=== PATIENT | female | born 1960 | race Hispanic/Latino ===

== ENCOUNTER 2022-05-23 07:48 | Observation (INO) | payer OTHER, MEDICARE ==
[2022-05-23 08:24] LABS: #Basophils 0.1 thou/uL (0.0-0.2); #Lymphocytes 3.2 thou/uL (1.20-3.40); #Monocytes 0.5 thou/uL (0.11-0.59); #Neutrophils 5.3 thou/uL (1.40-6.50); %Basophils 0.7 % (0.0-1.0); %Eosinophils 0.4 % (0.0-10.0); %Lymphocytes 34.8 % (21.0-51.0); %Monocytes 5.7 % (0.0-10.0); %Neutrophils 58.3 % (42.0-75.0); Hemoglobin 12.6 g/dL (12.0-16.0); Mean Corpuscular HGB CONC 31.8 g/dL (32.0-36.0); Mean Corpuscular Hemoglobin 32.5 pg (27.0-31.0); Mean Platelet Volume 8.6 fL (7.4-10.4); Platelet Count 205 10x3/uL (130-400); Red Blood Cell (RBC) Count 3.87 mill/uL (4.20-5.40); White Blood Cell (WBC) Count 9.1 10x3/uL (4.8-10.8)
[2022-05-23 08:47] LABS: Acetaminophen Less than 10.0 mcg/mL (10.0-30.0); Alcohol Less than 10 mg/dL (Less than 10); Salicylate Less than 8.0 mg/dL (15.0-30.0)
[2022-05-23 08:48] LABS: ALT (SGPT) 26 U/L (8-55); AST (SGOT) 25 U/L (5-34); Alkaline Phosphatase 64 U/L (40-110); Anion Gap 16 mmol/L (10-20); BUN (Urea Nitrogen) 15 mg/dL (9.8-20.1); Bilirubin, Total 0.8 mg/dL (0.2-1.2); Calc. Creatinine Clearance 0 mL/min (70-130); Calcium 9.1 mg/dL (7.8-10.44); Carbon Dioxide 17 mmol/L (22-29); Chloride 105 mmol/L (98-107); Estimated GFR 82; Globulin 3.2 g/dL (2.4-3.5); Glucose 146 mg/dL (70-105); Lipase 9 U/L (8-78); Potassium 3.5 mmol/L (3.5-5.1); Protein, Total 7.2 g/dL (6.0-8.3); Sodium 134 mmol/L (136-145)
[2022-05-23] MEDS ORDERED: Morphine 4 MG/ML VIAL ONE (08:52)
[2022-05-23] MEDS ORDERED: Gentamicin Sulfate 80 MG in Premix Bag 1 BAG IVPB SCH (09:45)
[2022-05-23] MEDS ORDERED: CEFAZOLIN 1 GM VIAL ONE (09:49)
[2022-05-23 10:41] LABS: SARS-CoV-2 NAA Rapid Test Not Detected (NotDetected)
[2022-05-23] MEDS ORDERED: Sodium Chloride 0.9% 1,000 ML IV SCH (12:30)
[2022-05-23 12:31] VITALS: BMI 38.4
[2022-05-23 14:17] LABS: Bilirubin Negative (Negative); Blood, Urine Negative (Negative); Clarity Clear (Clear); Glucose, Urine (Dipstick) Normal (Negative); Ketone, Urine 40 mg/dL (Negative); Leukocyte Negative Leu/uL (Negative); Nitrite Negative (Negative); Protein, Urine (Dipstick) 20 mg/dL (Neg-Trace); Urobilinogen Normal mg/dL (Less than 2)
[2022-05-23 14:18] LABS: Specific Gravity, Urine 1.063 (1.002-1.036)
[2022-05-23 14:26] LABS: Amphetamine Not Detected (NotDetected); Barbiturates Screen Not Detected (NotDetected); Benzodiazepine Screen Detected (NotDetected); Cocaine Metabolite Screen Not Detected (NotDetected); Methadone Not Detected (NotDetected); Methamphetamine Not Detected (NotDetected); Opiate Screen Detected (NotDetected); Oxycodone Screen Not Detected (NotDetected); Phencyclidine (PCP) Not Detected (NotDetected); THC/Cannabinoid Screen Detected (NotDetected); Tricyclic Screen Not Detected (NotDetected)
[2022-05-23] MEDS ORDERED: Iopamidol-370 76% 500 ML 1 ML ONE (15:25)
[2022-05-23] MEDS ORDERED: Midazolam HCl 2 mg/2 ml Vial ONE (17:51)
[2022-05-23] MEDS ORDERED: Thrombin 5000 UNITS/5 ML VIAL ONE (18:04)
[2022-05-23] MEDS ORDERED: Neomycin-Polymyxin 1 ML AMP ONE (18:04)
[2022-05-23] MEDS ORDERED: Bupivacaine PF 0.5% 30 ML VIAL ONE (18:04)
[2022-05-23] MEDS ORDERED: Bacitracin Zinc Ointment 30 gm TUBE ONE (18:04)
[2022-05-23] MEDS ORDERED: ePHEDrine 50 MG/ML VIAL ONE (20:12)
[2022-05-23] MEDS ORDERED: Ondansetron PF 4 MG/2 ML Vial ONE (20:12)
[2022-05-23] MEDS ORDERED: Lidocaine 1% PF 5 ML VIAL ONE (20:12)
[2022-05-23] MEDS ORDERED: PROPOFOL 200 MG/20 ML VIAL ONE (20:12)
[2022-05-23] MEDS ORDERED: Ketorolac Tromethamine 30 MG/ML VIAL IVP PRN (22:01)
[2022-05-23] MEDS ORDERED: Ondansetron HCl/PF 4 MG/2 ML Vial IVP PRN (22:01)
[2022-05-23] MEDS ORDERED: Promethazine HCl 25 MG/ML VIAL IVPB PRN (22:01)
[2022-05-23] MEDS ORDERED: Promethazine HCl 25 MG/ML VIAL IM PRN (22:01)
[2022-05-23] MEDS ORDERED: Ketorolac Tromethamine 30 MG/ML VIAL ONE (22:03)
[2022-05-23] MEDS ORDERED: Fentanyl 100 MCG/2 ML VIAL ONE ×2 (22:23→22:38)
[2022-05-24] MEDS ORDERED: Communication Order-Pharmacy FS PRN (02:30)
[2022-05-24] MEDS ORDERED: Acetaminophen/Codeine 30-300mg Tablet PO PRN (02:30)
[2022-05-24] MEDS ORDERED: Ondansetron PF 4 MG/2 ML Vial SLOW IVP PRN (02:30)
[2022-05-24] MEDS ORDERED: Bisacodyl 10 MG SUPP PR PRN (02:30)
[2022-05-24] MEDS ORDERED: Acetaminophen 325 MG TAB PO PRN (02:30)
[2022-05-24] MEDS ORDERED: traMADol HCl 50 MG TAB PO PRN (02:30)
[2022-05-24] MEDS ORDERED: Promethazine HCl 25 MG/ML VIAL IM PRN (02:30)
[2022-05-24] MEDS ORDERED: Meperidine HCl/PF 25 MG/ML VIAL IM PRN (02:34)
[2022-05-24] MEDS: HYDROcodone/Acetaminophen 5/325 mg Tablet PO PRN ×3 (03:06→20:38)
[2022-05-24] MEDS: Ketorolac Tromethamine 30 MG/ML VIAL IVP PRN ×2 (03:06→20:32)
[2022-05-24] MEDS: VANCOMYCIN 1.25 GM/250 ML BAG 1.25 GM in Premix Bag 1 BAG IVPB SCH (03:18)
[2022-05-24] MEDS: Aspirin 81 mg Enteric Coated Tablet PO SCH ×2 (08:47→20:32)
[2022-05-24] MEDS ORDERED: TETANUS, DIPHTHERIA TOX,ADULT (TDVAX) 0.5 ML VIAL IM ONE (09:00)
[2022-05-24] MEDS ORDERED: Vancomycin 1 GM in Premix Bag 1 BAG IVPB SCH (09:00)
[2022-05-24] MEDS: Morphine 4 MG/ML VIAL SLOW IVP PRN ×2 (11:16→14:58)
[2022-05-24] MEDS: ALPRAZolam 0.5 MG TAB PO SCH (20:32)
[2022-05-25] MEDS: Ketorolac Tromethamine 30 MG/ML VIAL IVP PRN (03:12)
[2022-05-25] MEDS: VANCOMYCIN 1.25 GM/250 ML BAG 1.25 GM in Premix Bag 1 BAG IVPB SCH (03:13)
[2022-05-25] MEDS: HYDROcodone/Acetaminophen 5/325 mg Tablet PO PRN ×2 (07:40→14:44)
[2022-05-25] MEDS: Aspirin 81 mg Enteric Coated Tablet PO SCH (07:40)
[2022-05-25] MEDS: ALPRAZolam 0.5 MG TAB PO SCH (07:40)
[2022-05-25 14:46] VITALS: BP 138/82; TEMP 98.4
== END 2022-05-25 14:54 | disposition home or self-care (01) ==
LOC: ERS 07:48 → T4-A 11:55
PROVIDERS: ADMIT Orthopaedic Surgery Hand Surgery; ATTEND Orthopaedic Surgery Hand Surgery
PROC: 0PSQ04Z Reposition Left Metacarpal with Internal Fixation Device, Open Approach (ICD-10-PCS; principal; 2022-05-23)
PROC: 0HQQXZZ Repair Finger Nail, External Approach (ICD-10-PCS; 2022-05-23)
DX: S62.337B Displaced fracture of neck of fifth metacarpal bone, left hand, initial encounter for open fracture (principal); S20.212A Contusion of left front wall of thorax, initial encounter; S30.1XXA Contusion of abdominal wall, initial encounter; I25.2 Old myocardial infarction; Z86.73 Personal history of transient ischemic attack (TIA), and cerebral infarction without residual deficits; Z79.01 Long term (current) use of anticoagulants; Z79.84 Long term (current) use of oral hypoglycemic drugs; Z79.899 Other long term (current) drug therapy; Z20.822 Contact with and (suspected) exposure to COVID-19; V89.2XXA Person injured in unspecified motor-vehicle accident, traffic, initial encounter
CPT/HCPCS: 70450; 71260; 72125; 74177; 80053; 80306; 80307; 81003; 83690; 85025; 93005; 96374; 96375; 96376; C1894; G0378; G0390; J0690; J1580; J1885; J2250; J2270; J2405; J2704; J3010; J3370; J3490; J7050; Q9967; S0020; U0002

== ENCOUNTER 2022-05-28 02:09 | Emergency (ER) | payer OTHER, MEDICARE ==
[2022-05-28] MEDS ORDERED: hydrOXYzine Pamoate 25 mg Capsule ONE (03:18)
[2022-05-28] MEDS ORDERED: Ibuprofen 200 MG TAB ONE (03:18)
== END 2022-05-28 04:28 | disposition home or self-care (01) ==
LOC: ERS 02:09
DX: S80.02XA Contusion of left knee, initial encounter (principal); S80.01XA Contusion of right knee, initial encounter; F41.9 Anxiety disorder, unspecified; I25.10 Atherosclerotic heart disease of native coronary artery without angina pectoris; I10 Essential (primary) hypertension; E11.9 Type 2 diabetes mellitus without complications; E03.9 Hypothyroidism, unspecified; V89.2XXA Person injured in unspecified motor-vehicle accident, traffic, initial encounter
CPT/HCPCS: 99284; Q0177